=== PATIENT | male | born 1945 | race Caucasian/White ===

== ENCOUNTER 2021-06-17 01:39 | Day surgery (SDC) | payer OTHER, SELFPAY ==
[2021-06-03 13:59] VITALS: BMI 32.6
--- NOTE | 2021-06-17 08:22 | P.PNAN_ITS ---
Anes - Initial Pre Proc Eval Procedure: Operation Date: 06/17/21 13:00 Proposed Procedures p Screening Colonoscopy - Tavares Randolph MD Date/Time: 06/17/21 08:22 Surgeon: Tavares Randolph MD Pre Op Diagnosis: hx of colon polyps Patient Data Age: 75 Gender: M Height: 1.63 m Weight: 86.3 kg Allergies Allergy/AdvReac Type Severity Reaction Status Date / Time No Known Allergies Allergy Mild Verified 06/17/21 11:30 Home Medications Medication Instructions Recorded Confirmed Type atorvastatin 10 mg PO HS 05/31/19 06/17/21 History lisinopril 20 mg PO DAILY 05/31/19 06/17/21 History Patient hx anesthesia problems: none Family hx anesthesia problems: none Results Review: All pre-operative results and documents have been reviewed as part of the pre-operative evaluation. [facility] Past Medical History Medical History (Updated 06/17/21 @ 11:36 by Tavares Randolph MD) Cancer PROSTATE AND PENILE Colonic polyp Essential (primary) hypertension Hypertension Obesity Penile lesion Excision (MOHS) of penile lesion with subsequent penile reconstruction Pure hypercholesterolemia Reducible right inguinal hernia Surgical History Surgical History History of circumcision History of right inguinal hernia repair 06/14/19 History of tonsillectomy Status post cryoablation Prostate Family History Family History Other Cancer Father Acute myocardial infarction Mother Acute myocardial infarction Social History Social History Smoking status: Never smoker Alcohol intake: current Drinks per week: 1 Alcohol use details: occasional Substance use: never Substance use type: does not use Living arrangements: alone Gender identity (if verbalized by the patient): Male Spiritual care concerns: No Anes - Eval Final PreProcedure Day of Procedure 06/17/21 08:22 Patient weight: obese Heart: regular rate and rhythm Lungs: clear to auscultation and normal air movement Airway: Mallampati scale class II Neurological: alert and oriented Last oral intake: >/= 8 hours ASA classification: III Emergent: no Anesthetic plan: proceed Anesthesia type and monitoring: general GIVS and standard monitoring Results Review: All pre-operative results and documents have been reviewed as part of the pre-operative evaluation. Informed Consent: The patient's anesthetic plan and its attendant risks and benefits were discussed with the patient/family/POA. Questions were solicited and answers provided to the satisfaction of the patient/family/POA.
[2021-06-17 11:31] VITALS: BP 147/88; PULSE 88; RESP 17; TEMP 36.9; O2SAT 99; BMI 32.4
[2021-06-17] MEDS: LACTATED RINGERS 1,000 ML 150 ML IV CONT (11:34)
--- NOTE | 2021-06-17 11:34 | WPDGICN ---
Assessment and Plan Assessment and plan (1) History of colon polyps: Code(s): Z86.010 - Personal history of colonic polyps Status: Acute Assessment and Plan: Patient has a history of colon polyp in 2016 by colonoscopy. Plan is for surveillance colonoscopy now and at intervals in the future. GI Consult Note Consult date/time: 06/17/21 11:34 HPI: Reymundo Rodriguez is a 75 year old male Presents for screening colonoscopy. Patient has a history of adenomatous colon polyp removed from the colon in 2016. Patient's current weight appetite bowel movements are normal. He denies abdominal pain. He has had no bleeding. Family history Is noncontributory. Review of Systems Review of Systems: All systems reviewed & are unremarkable except as noted in HPI and below PMFSH Past Medical History Medical History (Updated 06/17/21 @ 11:36 by Tavares Randolph MD) Cancer PROSTATE AND PENILE Colonic polyp Essential (primary) hypertension Hypertension Obesity Penile lesion Excision (MOHS) of penile lesion with subsequent penile reconstruction Pure hypercholesterolemia Reducible right inguinal hernia Surgical History Surgical History History of circumcision History of right inguinal hernia repair 06/14/19 History of tonsillectomy Status post cryoablation Prostate Family History Family History Other Cancer Father Acute myocardial infarction Mother Acute myocardial infarction Social History Social History Smoking status: Never smoker Alcohol intake: current Drinks per week: 1 Alcohol use details: occasional Substance use: never Substance use type: does not use Living arrangements: alone Gender identity (if verbalized by the patient): Male Spiritual care concerns: No Meds Home Medications and Allergies Home Medications Medication Instructions Recorded Confirmed Type atorvastatin 10 mg PO HS 05/31/19 06/17/21 History lisinopril 20 mg PO DAILY 05/31/19 06/17/21 History Allergies Allergy/AdvReac Type Severity Reaction Status Date / Time No Known Allergies Allergy Mild Verified 06/17/21 11:30 Vital Signs Vital Signs - 24 hr 06/17/21 11:31 Temperature 98.4 F Pulse Rate 88 Respiratory Rate 17 Blood Pressure 147/88 H Pulse Oximetry 99 Exam Narrative: Physical exam reveals patient to be alert. Vital signs stable. HEENT exam is unremarkable. Patient is anicteric. Lungs are clear to auscultation and percussion. Heart is without murmur or extra sounds. Abdominal exam bowel sounds are present soft nontender with no organomegaly. Digital external rectal exam is normal.
[2021-06-17] MEDS: SIMETHICONE ORAL SUSPENSION 20 MG/0.3 ML 30 ML BOTTLE 0.6 ML IRRIGATION (12:50)
[2021-06-17 13:01] VITALS: BP 106/69; PULSE 74; RESP 15; O2SAT 95
[2021-06-17 13:11] VITALS: BP 98/68; PULSE 74; RESP 19; O2SAT 99
[2021-06-17 13:21] VITALS: BP 105/71; PULSE 71; RESP 15; O2SAT 97
== END 2021-06-17 13:40 | disposition home or self-care (01) ==
PROVIDERS: PCP Family Medicine; Visit Provider Internal Medicine Gastroenterology
PROC: 0DJD8ZZ Inspection of Lower Intestinal Tract, Via Natural or Artificial Opening Endoscopic (ICD-10-PCS; CPT 45378; principal; 2021-06-17 13:00)
DX: Z12.11 Encounter for screening for malignant neoplasm of colon (principal); K64.8 Other hemorrhoids; Z86.010 Personal history of colon polyps; I10 Essential (primary) hypertension; E78.00 Pure hypercholesterolemia, unspecified; Z85.46 Personal history of malignant neoplasm of prostate; Z85.828 Personal history of other malignant neoplasm of skin; E66.9 Obesity, unspecified; Z68.32 Body mass index [BMI] 32.0-32.9, adult
CPT/HCPCS: G0105; J2704; J7120